=== PATIENT | female | born 1975 | race Caucasian/White ===

== ENCOUNTER → 2017-04-20 | Outpatient (CLI) | payer MEDICARE, OTHER ==
[2017-04-20 18:18] LABS: ABSOLUTE EOSINOPHILS # (AUTO) 0.1 10^3/uL (0.0-0.6); ABSOLUTE MONOCYTES (AUTO) 0.6 10^3/uL (0.1-1.4); ABSOLUTE NEUT (AUTO) 7.9 10^3/uL (1.7-8.2); BASOPHILS % (AUTO) 0.3 % (0-2); EOSINOPHILS % (AUTO) 0.7 % (0-6); HEMATOCRIT 42.7 % (36.0-47.0); HEMOGLOBIN 14.2 g/dL (12.0-15.5); HGB HCT DIFFERENCE -0.1; LYMPHOCYTES % (AUTO) 31.7 % (13-45); MEAN CORPUSCULAR HEMOGLOBIN 30.4 pg (27.0-33.4); MEAN CORPUSCULAR HGB CONC 33.3 g/dL (32.0-36.0); MEAN CORPUSCULAR VOLUME 91 fl (80-97); MONOCYTES % (AUTO) 4.9 % (3-13); RED BLOOD COUNT 4.68 10^6/uL (3.72-5.28); RED CELL DISTRIBUTION WIDTH 14.7 % (11.5-14.0); SEGMENTED NEUTROPHILS % (AUTO) 62.4 % (42-78); WHITE BLOOD COUNT 12.7 10^3/uL (4.0-10.5)
[2017-04-20 18:28] LABS: PROTHROMBIN TIME 11.8 SEC (11.4-15.4)
[2017-04-20 18:29] LABS: PARTIAL THROMBOPLASTIN TIME 31.5 SEC (23.5-35.8)
[2017-04-20 18:37] LABS: APPEARANCE,URINE SLIGHTLY-CLOUDY; BILIRUBIN,URINE NEGATIVE (NEGATIVE); GLUCOSE, URINE NEGATIVE (NEGATIVE); KETONES,URINE NEGATIVE (NEGATIVE); LEUKOCYTE ESTERASE,URINE NEGATIVE (NEGATIVE); NITRITE,URINE NEGATIVE (NEGATIVE); PROTEIN,URINE NEGATIVE (NEGATIVE); URINE SPECIFIC GRAVITY 1.018; UROBILINOGEN,URINE NEGATIVE mg/dL (<2.0)
== END ==
LOC: OD 17:04
PROVIDERS: ATTEND Student in an Organized Health Care Education/Training Program
DX: Z79.01 Long term (current) use of anticoagulants (principal); Z51.81 Encounter for therapeutic drug level monitoring
CPT/HCPCS: 36415; 81001; 85025; 85610; 85730

== ENCOUNTER 2017-06-15 07:37 | Day surgery (SDC) | payer MEDICARE, OTHER ==
[2017-06-10 11:45] LABS: HEMATOCRIT 41.6 % (36.0-47.0); HEMOGLOBIN 14.1 g/dL (12.0-15.5); HGB HCT DIFFERENCE 0.7; MEAN CORPUSCULAR HEMOGLOBIN 30.7 pg (27.0-33.4); MEAN CORPUSCULAR HGB CONC 33.8 g/dL (32.0-36.0); MEAN CORPUSCULAR VOLUME 91 fl (80-97); RED BLOOD COUNT 4.58 10^6/uL (3.72-5.28); RED CELL DISTRIBUTION WIDTH 14.7 % (11.5-14.0); WHITE BLOOD COUNT 13.2 10^3/uL (4.0-10.5)
[2017-06-10 11:53] LABS: APPEARANCE,URINE SLIGHTLY-CLOUDY; BILIRUBIN,URINE MODERATE (NEGATIVE); CALCIUM OXALATE CRYSTALS,URINE MODERATE /HPF; GLUCOSE, URINE NEGATIVE (NEGATIVE); KETONES,URINE NEGATIVE (NEGATIVE); LEUKOCYTE ESTERASE,URINE NEGATIVE (NEGATIVE); NITRITE,URINE NEGATIVE (NEGATIVE); PROTEIN,URINE NEGATIVE (NEGATIVE); URINE SPECIFIC GRAVITY 1.038; UROBILINOGEN,URINE NEGATIVE mg/dL (<2.0)
[2017-06-10 11:53] LABS: PROTHROMBIN TIME 12.1 SEC (11.4-15.4)
[2017-06-10 11:54] LABS: PARTIAL THROMBOPLASTIN TIME 30.5 SEC (23.5-35.8)
--- NOTE | 2017-06-10 12:01 | RADIOLOGY REPORT (SQ) ---
EXAM DESCRIPTION: CHEST PA/LATERAL COMPLETED DATE/TIME: 06/10/2017 11:53 am REASON FOR STUDY: PRE OP COMPARISON: 07/17/2014. EXAM PARAMETERS: NUMBER OF VIEWS: two views TECHNIQUE: Digital Frontal and Lateral radiographic views of the chest acquired. RADIATION DOSE: NA LIMITATIONS: none FINDINGS: LUNGS AND PLEURA: No opacities, masses or pneumothorax. No pleural effusion. MEDIASTINUM AND HILAR STRUCTURES: No masses or contour abnormalities. HEART AND VASCULAR STRUCTURES: Heart normal size. No evidence for failure. BONES: No acute findings. HARDWARE: None in the chest. OTHER: No other significant finding. IMPRESSION: NO SIGNIFICANT RADIOGRAPHIC FINDING IN THE CHEST. TECHNICAL DOCUMENTATION: JOB ID: [id number] [employer]- All Rights Reserved
--- NOTE | 2017-06-11 03:56 | EKG REPORT ---
SEVERITY:- NORMAL ECG - SINUS RHYTHM : Confirmed by: Natalie Olvera MD 11-Jun-2017 03:55:28
[~2017-06-15 07:37] MED LIST: CEFAZOLIN 1 GM/D5W RTU 1 GM/50 ML RTUPB IV PRN; LACTATED RINGERS 1000 ML IV PRN; LIDOCAINE 0.5% INJ-PF (5 MG/ML) 50 ML SDV SUBCUT PRN
[2017-06-15 08:13] LABS: APPEARANCE,URINE CLEAR; BILIRUBIN,URINE NEGATIVE (NEGATIVE); GLUCOSE, URINE NEGATIVE (NEGATIVE); KETONES,URINE NEGATIVE (NEGATIVE); LEUKOCYTE ESTERASE,URINE NEGATIVE (NEGATIVE); NITRITE,URINE NEGATIVE (NEGATIVE); PROTEIN,URINE NEGATIVE (NEGATIVE); URINE SPECIFIC GRAVITY 1.021; UROBILINOGEN,URINE NEGATIVE mg/dL (<2.0)
[2017-06-15 08:31] LABS: HEMATOCRIT 38.8 % (36.0-47.0); HEMOGLOBIN 13.3 g/dL (12.0-15.5); HGB HCT DIFFERENCE 1.1; MEAN CORPUSCULAR HEMOGLOBIN 31.1 pg (27.0-33.4); MEAN CORPUSCULAR HGB CONC 34.4 g/dL (32.0-36.0); MEAN CORPUSCULAR VOLUME 90 fl (80-97); RED BLOOD COUNT 4.29 10^6/uL (3.72-5.28); RED CELL DISTRIBUTION WIDTH 14.5 % (11.5-14.0); WHITE BLOOD COUNT 13.4 10^3/uL (4.0-10.5)
[2017-06-15] MEDS ORDERED: FENTANYL CITRATE INJ/PF 100 MCG/2 ML AMPUL ONE ×3 (08:44→11:27)
[2017-06-15] MEDS ORDERED: MIDAZOLAM 2 MG/2 ML INJ ONE (08:44)
[2017-06-15] MEDS ORDERED: PROPOFOL INJ 200 MG/20 ML VIAL IV ONE (08:45)
[2017-06-15] MEDS ORDERED: DEXMEDETOMIDINE INJ 80 MCG/20 ML VIAL IV ONE (08:45)
[2017-06-15 09:28] LABS: BASOPHILS % (MANUAL) 0 % (0-2); EOSINOPHILS % (MANUAL) 1 % (0-6); LYMPHOCYTES % (MANUAL) 35 % (13-45); TOTAL CELLS COUNTED 100
[2017-06-15 09:33] LABS: ANISOCYTOSIS SLIGHT; PLATELET CLUMPS PRESENT; TOXIC GRANULATION SLIGHT
[2017-06-15] MEDS: BUPIVACAINE HCL 0.25% /EPINEPHRINE INJ/PF 30 ML SDV ONE ×2 (09:37→10:10)
[2017-06-15] MEDS: LIDOCAINE 1% INJ-PF (10 MG/ML) 30 ML SDV ONE ×2 (09:37→10:10)
[2017-06-15] MEDS ORDERED: PROMETHAZINE HCL INJ 25 MG/1 ML VIAL IV PRN ×2 (09:44)
[2017-06-15] MEDS ORDERED: MEPERIDINE HCL/PF INJ 25 MG/1 ML DISP.SYRIN IV PRN (09:44)
[2017-06-15] MEDS ORDERED: FENTANYL CITRATE INJ/PF 100 MCG/2 ML AMPUL IV PRN ×3 (09:44)
[2017-06-15] MEDS ORDERED: DIPHENHYDRAMINE HCL 50 MG/ML VIAL IV PRN (09:44)
[2017-06-15] MEDS ORDERED: LIDOCAINE 1% INJ-PF (10 MG/ML) 30 ML SDV ONE (10:12)
[2017-06-15] MEDS ORDERED: BUPIVACAINE HCL 0.25% /EPINEPHRINE INJ/PF 30 ML SDV ONE (10:12)
[2017-06-15] MEDS ORDERED: CEFAZOLIN INJ 1 GM VIAL ONE (11:29)
[2017-06-15] MEDS: DIPHENHYDRAMINE HCL 50 MG/ML VIAL ONE ×3 (11:40→11:50)
--- NOTE | 2017-06-15 11:42 | OPERATIVE REPORT E ---
Operative Report NAME: VIVI MEAD : 1975 AGE: 41Y DATE OF SURGERY: 06/15/2017 ROOM: PREOPERATIVE DIAGNOSIS: Lumbar radiculopathy. POSTOPERATIVE DIAGNOSIS: Lumbar radiculopathy. PROCEDURE: Spinal cord stimulator implantation with dual leads and implantable generator, [employer]. SURGEON: ROBBY SCHAEFER M.D. MEDIA RECONCILIATION SPECIALIST: Dr. Bean Ortega ANESTHESIA: MAC. COMPLICATIONS: None. PROCEDURE IN DETAIL: After obtaining informed consent and advising the patient of all the risks and benefits, including serious neurologic injury, bleeding, infection, spinal fluid leak, allergic rhinitis, paralysis, headache, nerve injury, , and failure to attain satisfactory relief, she was taken to the operating room and placed comfortably in the prone position. MAC anesthesia was administered. After application of monitoring she was then prepped with ChloraPrep and then draped. After an appropriate drying time and waiting, she was then evaluated under fluoroscopy and adequate space was found at L1-L2. The skin covering both the premarked buttock incision on the right and the midline were anesthetized with 1% lidocaine followed by ropivacaine with epinephrine. Beginning at the midline incision, sharp and blunt dissection was performed down to the fascia, which was extensive. After further dissection and maintaining hemostasis, a 14-gauge Tuohy needle was placed in the epidural space at L1-L2 using loss of resistance of saline technique bilaterally. Attempts were made. Both needles ended up being placed on the right using a paramedian approach. The electrodes were then advanced under fluoroscopic guidance at the top of T8, being positioned in the midline. Lateral views were then taken initially and showed satisfactory placement. The leads were then tested and appropriate stimulation was found on discussion with the patient once awake. Once again, the leads were then secured using pursestrings with anchors in place. The anchors were then sutured in place. [place] were removed sequentially confirming leads without lead migration. Pursestrings were secured and anchors were placed and secured as well. Further fluoroscopic images confirmed the proper lead placement. While the lead positioning was occurring, Bean Ortega M.D. was assisting, creating the pocket for the new pulse generator. As soon as the pocket was made, proper hemostasis was confirmed. The skin between tunneling was then anesthetized using 1% lidocaine and a standard tunneling tool was used. Both incisions were felt to be satisfactory and proper hemostasis was confirmed. The wires were easily placed in the midline, stitched to the pocket and connected to the pulse generator, which was then tested and appropriate communication was made. All connections were secure. The generator was then placed in the pocket and assessed and found to be satisfactory. Position was again checked via fluoroscopy in both lateral and AP views. The wounds were copiously irrigated. The areas were then closed with interrupted vertical mattress sutures using 3-0 Vicryl, iesha were used in the midline, and Dermabond with tape was used on the buttock incision. An OpSite dressing was then placed over the tape. Patient was taken to the PACU for further postoperative care and monitoring. DICTATING PHYSICIAN: ROBBY SCHEAFER M.D. [id number] PHY#: [id number] ID: [id number] JOB#: [id number] ACCT: [id number] cc:ROBBY SCHAEFER M.D. >
[2017-06-15] MEDS ORDERED: OXYCODONE-ACETAMINOPHEN 5-325 MG TABLET PO PRN (11:46)
[2017-06-15] MEDS ORDERED: ONDANSETRON HCL INJ/PF 4 MG/2 ML SDV ONE (11:46)
[2017-06-15] MEDS ORDERED: OXYCODONE-ACETAMINOPHEN 5-325 MG TABLET ONE (12:09)
[2017-06-15] MEDS ORDERED: ONDANSETRON HCL INJ/PF 4 MG/2 ML SDV IV ONE (12:30)
[2017-06-15 14:09] VITALS: BP 101/62
--- NOTE | 2017-06-15 15:10 | RADIOLOGY REPORT (SQ) ---
EXAM DESCRIPTION: NO CHG FLUORO; THORACOLUMBAR SPINE AP/LAT COMPLETED DATE/TIME: 06/15/2017 2:30 pm REASON FOR STUDY: SPINAL STIMULATOR INSERTION ASSISTED WITH FLUORO IN OR G89.4 CHRONIC PAIN SYNDROM E Z79.01 CUSTODIAL (CURRENT) USE OF ANTICOAGULANTS COMPARISON: None. FLUOROSCOPY TIME: 7.1 minutes fluoro time. 11 images saved to PACS. TECHNIQUE: Intra-operative images acquired during surgical procedure to evaluate progress. NUMBER OF IMAGES: 11 LIMITATIONS: None. FINDINGS: Numerous images of the thoracic and upper lumbar spine are submitted in AP and lateral pro jections and reveal lead placement in the dorsal epidural space. Correlation with nonportable non fl uoroscopic images may be necessary to assess level. Please correlate with operative note. IMPRESSION: IMAGE(S) OBTAINED DURING PROCEDURE. COMMENT: Quality ID 145: Final reports for procedures using fluoroscopy that document radiation exp osure indices, or exposure time and number of fluorographic images (if radiation exposure indices are not available) Please consult full operative report of the attending physician for description of the procedure. TECHNICAL DOCUMENTATION: JOB ID: [id number] [employer]- All Rights Reserved
--- NOTE | 2017-06-15 15:10 | RADIOLOGY REPORT (SQ) ---
EXAM DESCRIPTION: NO CHG FLUORO; THORACOLUMBAR SPINE AP/LAT COMPLETED DATE/TIME: 06/15/2017 2:30 pm REASON FOR STUDY: SPINAL STIMULATOR INSERTION ASSISTED WITH FLUORO IN OR G89.4 CHRONIC PAIN SYNDROM E Z79.01 RESIDENTIAL (CURRENT) USE OF ANTICOAGULANTS COMPARISON: None. FLUOROSCOPY TIME: 7.1 minutes fluoro time. 11 images saved to PACS. TECHNIQUE: Intra-operative images acquired during surgical procedure to evaluate progress. NUMBER OF IMAGES: 11 LIMITATIONS: None. FINDINGS: Numerous images of the thoracic and upper lumbar spine are submitted in AP and lateral pro jections and reveal lead placement in the dorsal epidural space. Correlation with nonportable non fl uoroscopic images may be necessary to assess level. Please correlate with operative note. IMPRESSION: IMAGE(S) OBTAINED DURING PROCEDURE. COMMENT: Quality ID 145: Final reports for procedures using fluoroscopy that document radiation exp osure indices, or exposure time and number of fluorographic images (if radiation exposure indices are not available) Please consult full operative report of the attending physician for description of the procedure. TECHNICAL DOCUMENTATION: JOB ID: [id number] [employer]- All Rights Reserved
== END 2017-06-15 13:15 | disposition home or self-care (01) ==
LOC: OROUT 07:37
PROVIDERS: ATTEND Pain Medicine Interventional Pain Medicine
PROC: 00HU3MZ Insertion of Neurostimulator Lead into Spinal Canal, Percutaneous Approach (ICD-10-PCS; 2017-06-15)
PROC: 0JH70MZ Insertion of Stimulator Generator into Back Subcutaneous Tissue and Fascia, Open Approach (ICD-10-PCS; principal; 2017-06-15 09:30)
DX: G89.4 Chronic pain syndrome (principal); M47.897 Other spondylosis, lumbosacral region; M51.37 Other intervertebral disc degeneration, lumbosacral region; M54.15 Radiculopathy, thoracolumbar region; M79.1 Myalgia; M47.817 Spondylosis without myelopathy or radiculopathy, lumbosacral region; M54.17 Radiculopathy, lumbosacral region; F45.42 Pain disorder with related psychological factors; J45.909 Unspecified asthma, uncomplicated; F17.210 Nicotine dependence, cigarettes, uncomplicated; R00.2 Palpitations; I47.9 Paroxysmal tachycardia, unspecified; M79.7 Fibromyalgia; G40.909 Epilepsy, unspecified, not intractable, without status epilepticus; Z79.899 Other long term (current) drug therapy; Z79.01 Long term (current) use of anticoagulants; Z79.84 Long term (current) use of oral hypoglycemic drugs; Z79.51 Long term (current) use of inhaled steroids; Z79.891 Long term (current) use of opiate analgesic; Z88.5 Allergy status to narcotic agent; Z88.8 Allergy status to other drugs, medicaments and biological substances
CPT/HCPCS: 36415; 71020; 72080; 81001; 81025; 85025; 85027; 85610; 85730; 93005; 93010; C1778; C1787; C1820; J0690; J1200; J2250; J2405; J2550; J2704; J3010; J3490

== ENCOUNTER → 2018-06-21 | Outpatient (CLI) | payer MEDICARE, OTHER ==
--- NOTE | 2018-06-21 14:15 | RADIOLOGY REPORT (SQ) ---
EXAM DESCRIPTION: T SPINE AP/LAT COMPLETED DATE/TIME: 06/21/2018 1:02 pm REASON FOR STUDY: RADICULOPATHY, THORACOLUMBAR REGION M54.15 RADICULOPATHY, THORACOLUMBAR REGION COMPARISON: None. NUMBER OF VIEWS: Two views. TECHNIQUE: AP and lateral radiographic images acquired of the thoracic spine. LIMITATIONS: None. FINDINGS: MINERALIZATION: Normal. ALIGNMENT: Normal. No scoliosis. VERTEBRAE: No fracture or bone lesion. Maintained height, normal segmentation. DISCS: No significant loss of height or significant narrowing. No large osteophytes. HARDWARE: Neurostimulator electrodes are present. MEDIASTINUM AND SOFT TISSUES: Normal heart size and aortic contour. No soft tissue abnormality. VISUALIZED LUNG MENG: Clear. OTHER: No other significant finding. IMPRESSION: NO SIGNIFICANT RADIOGRAPHIC FINDING IN THE THORACIC SPINE. TECHNICAL DOCUMENTATION: JOB ID: [id number] [employer]- All Rights Reserved Reading location - IP/workstation name: [email or web address]
== END ==
LOC: OD 12:42
PROVIDERS: ATTEND Student in an Organized Health Care Education/Training Program
DX: M54.15 Radiculopathy, thoracolumbar region (principal)
CPT/HCPCS: 72070

== ENCOUNTER → 2020-02-08 | Outpatient (CLI) | payer MEDICARE, OTHER | LOC: OD 12:28 | PROVIDERS: ATTEND Otolaryngology | DX: J30.9 Allergic rhinitis, unspecified (principal) | CPT/HCPCS: 36415; 82785; 86003 ==

== ENCOUNTER → 2020-02-23 | Outpatient (CLI) | payer MEDICARE, OTHER ==
--- NOTE | 2020-02-23 11:34 | RADIOLOGY REPORT (SQ) ---
EXAM DESCRIPTION: CT SINUSES FOR ENT IMAGES COMPLETED DATE/TIME: 02/23/2020 7:35 am REASON FOR STUDY: RHINOSUNUSITIS J32.9 CHRONIC SINUSITIS, UNSPECIFIED COMPARISON: CT sinuses 03/01/2015 TECHNIQUE: Noncontrast scanning through the paranasal sinuses using bone algorithm. Reconstructed MPR images reviewed. All images stored on PACS. All CT scanners at this facility use dose modulation, iterative reconstruction, and/or weight based d osing when appropriate to reduce radiation dose to as low as reasonably achievable (ALARA). [facility]: Dose Right [facility]: CareDose [facility]: Dose Right [facility]: Teradose 4D [facility]: [employer] RADIATION DOSE: 47 mGy LIMITATIONS: None. FINDINGS: Right sinuses and drainage pathways: Post-surgical changes: None. Frontal sinus: Normal. Frontoethmoidal Recess: Normal. Anterior Ethmoid Sinuses: Normal. Incidental finding of a 4 mm osteoma axial image 93 Posterior Ethmoid Sinuses: Normal. Sphenoid Sinus: Normal. Sphenoethmoidal Recess: Normal. Maxillary Sinus: Normal. Ostiomeatal Complex: Normal. Left Sinuses and Drainage Pathways: Post-Surgical Changes: None. Frontal Sinus: Normal. Frontoethmoidal Recess: Normal. Anterior Ethmoid Sinuses: Normal. Posterior Ethmoid Sinuses: Normal. Sphenoid Sinus: Normal. Sphenoethmoidal Recess: Normal. Maxillary Sinus: Normal. Ostiomeatal Complex: Normal. Right Olfactory Fossa: No polyps. Left Olfactory Fossa: No polyps. Middle Turbinate Grazyna Bullosa: No. Paradoxical Middle Turbinate: Bilateral Atelectatic Uncinated Process: No. Frontal Narcisa Cell Type I: No. Frontal Narcisa Cell Type II: No. Interfrontal Sinus Septal Cell: None. Supra-Orbital Ethmoid: None. Frontal Bullar Cell: None. Suprabullar Bullar Cell: None. Sphenoethmoidal ([place]) Cell: None. Pneumatization of the Anterior Clinoid Processes: On the right Hypoplastic Maxillary Sinus: None. Osteoneogenesis: None. Bone Dehiscence:None. Nasal Cavity: Normal. Nasal Septum: Rightward nasal septal deviation Anatomic Variants: Right Vidian Canal: Normal. Left Vidian Canal: Normal. IMPRESSION: NO EVIDENCE OF ACUTE OR CHRONIC SINUSITIS. TECHNICAL DOCUMENTATION: JOB ID: [id number] Quality ID # [id number]: Final reports with documentation of one or more dose reduction techniques (e.g., Au tomated exposure control, adjustment of the mA and/or kV according to patient size, use of iterative reconstruction technique) 2010 [employer]- All Rights Reserved Reading location - IP/workstation name: [email or web address]
== END ==
LOC: RAD 07:18
PROVIDERS: ATTEND Otolaryngology
DX: J32.9 Chronic sinusitis, unspecified (principal)
CPT/HCPCS: 70486